=== PATIENT | female | born 1995 | race Caucasian/White ===

== ENCOUNTER 2019-02-10 14:16 | Emergency (ER) | payer MEDICAID ==
[~2019-02-10] VITALS: Ht 172.7 cm; Wt 65.0 kg
[2019-02-10 15:04] LABS: BASOPHILS # (AUTO) 0.04 x10^3/uL (0-0.1); BASOPHILS % (AUTO) 1 % (0-1); EOSINOPHILS % (AUTO) 3 % (1-7); LYMPHOCYTES # (AUTO) 2.52 x10^3/uL (1-3.4); LYMPHOCYTES % (AUTO) 31 % (22-44); MD NO; MEAN CORPUSCULAR HEMOGLOBIN 29.4 pg (27.0-34.8); MEAN CORPUSCULAR HGB CONC 32.6 g/dL (32.4-35.8); MEAN CORPUSCULAR VOLUME 90.2 fL (80-100); MEAN PLATELET VOLUME 9.4 fL (7.4-10.4); MONOCYTES # (AUTO) 0.63 x10^3/uL (0.2-0.8); MONOCYTES % (AUTO) 8 % (2-9); NEUTROPHILS # (AUTO) 4.66 x10^3/uL (1.8-6.8); NEUTROPHILS % (AUTO) 58 % (42-75); PLATELET COUNT 253 x10^3/uL (130-400); RED BLOOD COUNT 4.46 x10^6/uL (3.82-5.3); RED CELL DISTRIBUTION WIDTH 14.5 % (9.6-15.2)
[2019-02-10 15:17] LABS: ALBUMIN 3.9 g/dL (3.4-5.0); ANION GAP 8 mmol/L (5-15); CALCIUM 9.3 mg/dL (8.5-10.1); CHLORIDE 111 mmol/L (98-107)
[2019-02-10 15:18] LABS: CREATININE 0.72 mg/dL (0.55-1.02)
[2019-02-10 15:23] LABS: MICROSCOPIC AUTO
[2019-02-10 16:44] VITALS: BP 118/72
== END 2019-02-10 16:46 | disposition home or self-care (01) ==
LOC: ED 16:10
DX: R56.9 Unspecified convulsions (principal)
CPT/HCPCS: 36415; 80048; 81001; 82040; 85025; 99283

== ENCOUNTER 2019-02-24 11:59 | Emergency (ER) | payer MEDICAID ==
[~2019-02-24] VITALS: Ht 172.7 cm; Wt 68.0 kg
--- NOTE | 2019-02-24 12:10 | NUR ---
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 HAS NOT TAKEN MEDICATIONS FOR APPOX 2 DAYS PER EMS REPORT. PT JUST MOVED HERE AND HAS AN APPOINTMENT IN [facility] FOR POSSIBLE MEDICATION CHANGE. PT DROWSY ON ARRIVAL BUT RESPOND TO VERBAL COMMAND, ORIENTED X4. PT DOES C/O HELTON AT THIS TIME, PT STATES THIS IS NORMAL AFTER SHE HAS A SEIZURE. PT TO BP, CONT PULSE OX, SEIZURE PRECAUTIONS IN PLACE
--- NOTE | 2019-02-24 13:02 | NUR ---
SPOKE WITH PT MOM ON PHONE, PER PTS MOM PT MOVED HERE FROM [place] THREE MONTHS AGO AND SHE HASNT BEEN TAKING HER MEDICATION SINCE SHE HAS BEEN HERE, PTS MOM ALSO BELEIVES SHE HAS BEEN DRINKING ETOH WITH HER BF LATELY. PT RESTING ON [place] YOUNGBLOOD, NAD NOTED MOM IS COLLIN [phone] DAD IS SHAYAN [phone]
--- NOTE | 2019-02-24 14:02 | NUR ---
BREAK RN: PT SLEEPING, RESP EVEN AND UNLABORED
[2019-02-24 14:21] VITALS: BP 94/57
[2019-02-24 14:46] LABS: ANION GAP 5 mmol/L (5-15); CALCIUM 8.6 mg/dL (8.5-10.1); CHLORIDE 108 mmol/L (98-107); CREATININE 0.66 mg/dL (0.55-1.02)
--- NOTE | 2019-02-24 15:17 | NUR ---
PT TO DC HOME WITH SCRIPT, PTS MOM CALLED TO POLICY DIRECTOR PT
== END 2019-02-24 16:03 | disposition home or self-care (01) ==
LOC: ED 15:53
DX: G40.309 Generalized idiopathic epilepsy and epileptic syndromes, not intractable, without status epilepticus (principal)
CPT/HCPCS: 36415; 80048; 84703; 99283

== ENCOUNTER 2019-08-10 14:11 | Emergency (ER) | payer MEDICAID ==
[~2019-08-10] VITALS: Ht 170.2 cm; Wt 68.5 kg
--- NOTE | 2019-08-10 15:10 | NUR ---
REPORT TO CARLOS YOON
--- NOTE | 2019-08-10 15:13 | NUR ---
REPORT RC'VD FROM VLADIMIR YOON. ER THUY WAS IN TO SEE PT.
--- NOTE | 2019-08-10 15:15 | NUR ---
PIV PLACED-THEN MEDICATED PER EMAR WITH 1L NS
[2019-08-10] MEDS ORDERED: DIPHENHYDRAMINE 50 MG/ML, 1ML ONE (15:27)
[2019-08-10] MEDS ORDERED: DIPHENHYDRAMINE 50 MG/ML, 1ML IVPush ONE (15:30)
[2019-08-10] MEDS ORDERED: SODIUM CHLORIDE 0.9% 1,000ML IVBOLUS ONE (15:30)
--- NOTE | 2019-08-10 15:39 | NUR ---
PT RESTING IN GURNEY, AWAKENS EASILY. MEDICATED WITH BENADRYL PER ORDERS. IV BOLUS INFUSING. PT UNDERSTANDS POC. STATES HER BOYFRIEND WILL PICK HER UP.
[2019-08-10 15:51] LABS: BASOPHILS # (AUTO) 0.05 x10^3/uL (0-0.1); BASOPHILS % (AUTO) 1 % (0-1); EOSINOPHILS # (AUTO) 0.16 x10^3/uL (0-0.4); EOSINOPHILS % (AUTO) 2 % (1-7); LYMPHOCYTES # (AUTO) 1.98 x10^3/uL (1-3.4); LYMPHOCYTES % (AUTO) 21 % (22-44); MD NO; MEAN CORPUSCULAR HEMOGLOBIN 31.1 pg (27.0-34.8); MEAN CORPUSCULAR VOLUME 94.5 fL (80-100); MEAN PLATELET VOLUME 10.4 fL (7.4-10.4); MONOCYTES % (AUTO) 8 % (2-9); NEUTROPHILS # (AUTO) 6.55 x10^3/uL (1.8-6.8); NEUTROPHILS % (AUTO) 69 % (42-75); PLATELET COUNT 221 x10^3/uL (130-400); RED BLOOD COUNT 4.67 x10^6/uL (3.82-5.3); RED CELL DISTRIBUTION WIDTH 13.9 % (9.6-15.2)
[2019-08-10 15:53] LABS: ALBUMIN 4.2 g/dL (3.4-5.0); ANION GAP 8 mmol/L (5-15); CALCIUM 9.1 mg/dL (8.5-10.1); CHLORIDE 108 mmol/L (98-107); CREATININE 0.85 mg/dL (0.55-1.02)
[2019-08-10 16:00] VITALS: BP 99/53
[2019-08-10] MEDS ORDERED: ESCI10TA PO (16:30)
--- NOTE | 2019-08-10 16:37 | NUR ---
ER PA WAS IN FOR RECHECK. PT STATES SHE FEELS READY TO BE DISCHARGED.
--- NOTE | 2019-08-10 16:38 | NUR ---
D/C INSTRUCTIONS, MEDS & F/U APPT'S RV'WD WITH PT, SHE VERBALIZES UNDERSTANDING. RX GIVEN X1. PT AMBULATED OUT OF ED WITHOUT DIFFICULTY, STATES HER BOYFRIEND WILL PICK HER UP.
== END 2019-08-10 16:40 | disposition home or self-care (01) ==
LOC: ED 16:10
DX: R56.9 Unspecified convulsions (principal); R00.0 Tachycardia, unspecified; F41.9 Anxiety disorder, unspecified
CPT/HCPCS: 36415; 80048; 82040; 84703; 85025; 93005; 96374; 99284; J1200; J7030